=== PATIENT | male | born 1970 | race Caucasian/White ===

== ENCOUNTER 2017-01-04 07:50 | Observation (INO) | payer BC ==
[2017-01-04 07:58] VITALS: BMI 24.7
[2017-01-04] MEDS ORDERED: SODIUM CHLORIDE 1,000 ML IV STA (08:04)
[2017-01-04] MEDS ORDERED: ONDANSETRON 4 MG/2 ML VIAL IVPUSH ONE (08:04)
--- NOTE | 2017-01-04 08:10 | PDOC ---
History of Present Illness - General Chief Complaint: Pain Stated Complaint: VOMITING, ABDOMINAL PAIN Time Seen by Provider: 01/04/17 08:03 History Source: Patient Exam Limitations: No Limitations - History of Present Illness Initial Comments: 01/04/17 08:44 46 year old male with PMH of WPW (s/p ablation) and AV block presenting with acute on subacute diarrhea and abdominal pain. States that this crampy abdominal pain started approximately 2-3 weeks ago and co-presented with some diarrhea. He has noticed some new nausea, vomiting, worsening pain, and more frequent diarrhea (3-4 times daily) over the past 3-4 days with decreased appetite. The pain is described as a 6-8/10 in severity with a crampy quality potentially starting in his left lower quadrant (not entirely sure) now in his infra-umbilical region transversely with relief after defection and exacerbation after eating. He went to urgent care Friday and received a three day course of ciprofloxacin that has not relieved his symptoms. Denies fevers but endorses some occasional chills and headaches. Denies chest pain, palpitations, weakeness, SOB, cough, or other sick symptoms. Denies hematuria or hematochezia/ melena. He does not have a PCP but has a side sawyer Dr. Zambrano. Past History - Past Medical History Allergies/Adverse Reactions: Allergies Allergy/AdvReac Type Severity Reaction Status Date / Time Penicillins AdvReac Intermediate Hives Verified 01/04/17 08:14 Home Medications: Ambulatory Orders NK [No Known Home Medication] 01/04/17 Cardiac Disorders: Yes (wpw,sinoatrium block) Other medical history: WPW s/p ablation, history of AV block - Surgical History Cardiac Surgery: Yes (cardiac ablation) - Psycho/Social/Smoking Cessation Hx Anxiety: No Suicidal Ideation: No Smoking History: Never smoked Have you smoked in the past 12 months: No Information on smoking cessation initiated: No Hx Alcohol Use: No Drug/Substance Use Hx: No Substance Use Type: None Review of Systems - Review of Systems Constitutional: Yes: Loss of Appetite, Weakness. No: Fever, Night Sweats HEENTM: No: Blurred Vision, Recent change in vision Respiratory: No: Cough, Shortness of Breath, Stridor, Wheezing Cardiac (ROS): No: Chest Pain, Irregular Heart Rate, Lightheadedness ABD/GI: Yes: Diarrhea. No: Abdominal Distended, Blood Streaked Bowels, Constipated : No: Hematuria, Incontinence, Urgency Musculoskeletal: No: Back Pain, Joint Pain, Joint Swelling Neurological: Yes: Headache. No: Numbness, Paresthesia *Physical Exam - Vital Signs Last Vital Signs Temp Pulse Resp BP Pulse Ox 98.0 F 59 L 18 156/82 100 01/04/17 07:54 01/04/17 07:54 01/04/17 07:54 01/04/17 07:54 01/04/17 07:54 - Physical Exam General Appearance: Yes: Appropriately Dressed. No: Apparent Distress HEENT: positive: ABEBE, Normal Voice, Pharynx Normal. negative: Pale Conjunctivae, Photophobia, Scleral Icterus (R), Scleral Icterus (L), Pharyngeal Erythema Respiratory/Chest: positive: Lungs Clear, Normal Breath Sounds, Respiratory Distress. negative: Chest Tender Cardiovascular: positive: Regular Rhythm, Regular Rate, S1, S2 Gastrointestinal/Abdominal: positive: Normal Bowel Sounds, Flat, Soft. negative : Tender Musculoskeletal: positive: Normal Inspection. negative: CVA Tenderness (No CVA tenderness but some left sided back sorness) Extremity: positive: Normal Capillary Refill, Normal Inspection Integumentary: positive: Normal Color, Dry, Warm. negative: Cyanotic, Erythema Neurologic: positive: Fully Oriented, Alert ED Treatment Course - LABORATORY CBC & Chemistry Diagram: 01/04/17 08:13 01/04/17 08:13 Medical Decision Making - Critical Care Time Total Critical Care Time (minutes): 30 Critical Care Statement: The care of this patient involved high complexity decision making to prevent further life threatening deterioration of the patient 's condition and/or to evalute & treat vital organ system(s) failure or risk of failure. - Medical Decision Making 01/04/17 09:10 Otherwise healthy 46 year old male presenting with acute on subacute crampy abdominal pain with nausea. He was seen at urgent care during which stool samples were sent and presumed negative for fecal Leuks, however no objective data available. Given the extended chronicity of this pain and symptoms further workup is warranted. Most concerning is potential cholecystitis given chills and abdominal pain, although he was not exquisitely tender on abdominal exam and currently afebrile. Also potentially a renal stone less likely given clear urine and quality of pain. Although the patient denies sick contacts, this could potentially be a viral gastroenteritis, however, again the timeline is peculiar. Work up will include a abd/pelvis CT without con, UA, CBC, and CMP. 01/04/17 09:30 Labs significant for 1+ urine blood with creatinine 1.5, no white count or electrolyte derangement. Will give patient 1 L IV fluids, Zofran. 01/04/17 11:[address] returned positive colitis in ascending colon, cecum and potentially in rectum and sigmoid colon. Additional history from family states that there are family members with similar symptoms. This is most likely a viral gastroenteritis/ colitis although given uncertain timeline, will admit patient for GI evaluation and FLagyl/ Cipro treatment with symptomatic management. *DC/Admit/Observation/Transfer Diagnosis at time of Disposition: Colitis - Discharge Dispostion Admit: Yes Decision to Admit order Date/Time: 01/04/17 10:58 - Attestations Physician Attestion: 01/04/17 11:15 I, Dr. Temitope Mcnamara, attest that this document has been prepared under my direction and personally reviewed by me in its entirety. I further attest, that it accurately reflects all work, treatment, procedures and medical decision -making performed by me.
[2017-01-04 08:27] LABS: BASOPHIL 0.8 % (0-2.0); EOSINOPHIL 1.8 % (0-4.5); MCH 30.7 pg (25.7-33.7); MEAN CELL VOLUME 90.5 fl (80-96); MEAN PLT VOLUME 8.8 fl (7.5-11.1); NEUTROPHILS 68.2 % (42.8-82.8); PLATELET COUNT 192 K/MM3 (134-434); RDW 12.7 % (11.9-15.9); WHITE BLOOD COUNT 6.9 K/mm3 (4.0-10.0)
--- NOTE | 2017-01-04 08:29 | PDOC ---
Attending Attestation - Resident Resident Name: Temitope Mcnamara - ED Attending Attestation I have performed the following: I have examined & evaluated the patient, The case was reviewed & discussed with the resident, I agree w/resident's findings & plan, Exceptions are as noted - HPI HPI: 01/04/17 09:02 46 yo M presenting to the ER with a complaint of diarrhea His symptoms began approximately 3 weeks ago He did have raw clams a few weeks ago Diffuse abdominal pain No blood in stool A few days ago, had undercooked pork Was seen in UC, given cipro 01/04/17 09:05 - Physicial Exam PE: 01/04/17 09:13 RLQ tenderness to palpation No abdominal distention No involuntary guarding No rebound tenderness - Medical Decision Making 01/04/17 09:14 Will do labs will do CT Will hydrate Will re assess CT demonstrates colitis in several locations Will give Levaquin and Flagyl Place on observation Pt attempting to give stool specimen
[2017-01-04 08:30] LABS: URINE APPEARANCE CLEAR; URINE BILIRUBIN NEGATIVE (NEGATIVE); URINE COLOR STRAW; URINE GLUCOSE (UA) NEGATIVE (NEGATIVE); URINE KETONE NEGATIVE (NEGATIVE); URINE LEUK ESTERASE NEGATIVE (NEGATIVE); URINE NITRITE NEGATIVE (NEGATIVE); URINE PROTEIN NEGATIVE (NEGATIVE); URINE UROBILINOGEN NEGATIVE E.U./dl (0.2-1.0)
[2017-01-04] MEDS ORDERED: ONDANSETRON 4 MG/2 ML VIAL ONE (08:33)
[2017-01-04 08:42] LABS: URINE BLOOD 1+ (NEGATIVE)
[2017-01-04 08:52] LABS: ALBUMIN 3.6 g/dl (3.4-5.0); ANION GAP 6 (8-16); CALCIUM 9.2 mg/dL (8.5-10.1); CO2 28 mmol/L (21-32); CREATININE 1.5 mg/dL (0.7-1.3); GLUCOSE,RANDOM 110 mg/dL (74-106); SGOT/AST 22 U/L (15-37); SGPT/ALT 33 U/L (12-78)
[2017-01-04 08:52] LABS: URINE BACTERIA RARE /hpf (NONE SEEN); URINE MUCUS RARE; URINE RBC 2 /hpf (0-3); URINE WBC 3 /hpf (3-5)
[2017-01-04 08:54] LABS: ALK PHOS 64 U/L (45-117); BILIRUBIN,TOTAL 0.3 mg/dL (0.2-1.0); TOT PROT 7.2 g/dl (6.4-8.2)
[2017-01-04] MEDS: SODIUM CHLORIDE 1,000 ML IV STA ×2 (09:28→12:38)
[2017-01-04] MEDS ORDERED: METRONIDAZOLE 500 MG PREMIXED 100 ML IVPB ONE ×2 (11:04→11:07)
[2017-01-04] MEDS ORDERED: LEVOFLOXACIN 750 MG IVPB 150 ML IVPB ONE ×2 (11:04→11:05)
[2017-01-04] MEDS ORDERED: ONDANSETRON 4 MG/2 ML VIAL IVPB PRN (12:36)
--- NOTE | 2017-01-04 13:06 | HP ---
CHIEF COMPLAINT: Diarrhea for a few weeks HISTORY OF PRESENT ILLNESS: This is a 46 year old male with PMHx of Baljeet Parkinson White syndrome (s/p ablation 2000), who presented to the ED with several weeks of intermittent diarrhea. The patient reports that about 2 weeks ago he ate guacamole and the following day experienced severe diarrhea. This diarrhea has been intermittent since then. He denies any bloody diarrhea. He states on Friday night he felt like he was going to "pass out" and had "cold chills" and felt like his body "was on fire". He reports taking Tylenol and went to sleep. On he states he was not feeling better so he went to [facility] ([phone]) where he received IV fluids and had stool cultures sent. He was sent home at that time on Cipro x3 days. On night, the patient reportedly had a fever of 101. He reports only tolerating clear liquids and when he tries to advance his diet he has severe abdominal pain and cramping. The patient denies any nausea or vomiting. He denies any urinary symptoms, chest pain, shortness of breath, headache, dizziness. ER course was notable for: (1) Cr 1.5 (2) CTAP with concentric wall thickening consistent with acute colitis involving the cecum and ascending colon with probable involvement of the rectum and lower third of the sigmoid colon (3) Temp 98, HR 59, BP 156/82, resp 18, O2 100% on RA PAST MEDICAL HISTORY: Baljeet Parkinson White syndrome Social History: Smoking: no Alcohol: Occasionally, red wine 2 times a week about 2 glasses each time Drugs: no Family History: Father, esophageal cancer ( age 45). Brother, [place] in his 40s Allergies Penicillins Adverse Reaction (Intermediate, Verified 01/04/17 08:14) Hives HOME MEDICATIONS: Home Medications Medication Instructions Recorded NK [No Known Home Medication] 01/04/17 REVIEW OF SYSTEMS CONSTITUTIONAL: Fever of 101 on night with associated "cold chills". Absent: fever, diaphoresis, generalized weakness, malaise, loss of appetite, weight change HEENT: Absent: rhinorrhea, nasal congestion, throat pain, throat swelling, difficulty swallowing, mouth swelling, ear pain, eye pain, visual changes CARDIOVASCULAR: Absent: chest pain, syncope, palpitations, irregular heart rate , lightheadedness, peripheral edema RESPIRATORY: Absent: cough, shortness of breath, dyspnea with exertion, orthopnea, wheezing, stridor, hemoptysis GASTROINTESTINAL: Intermittent diarrhea x3 weeks. Absent: abdominal distension, nausea, vomiting, constipation, melena, hematochezia GENITOURINARY: Absent: dysuria, frequency, urgency, hesitancy, hematuria, flank pain, genital pain MUSCULOSKELETAL: Absent: myalgia, arthralgia, joint swelling, back pain, neck pain SKIN: Absent: rash, itching, pallor HEMATOLOGIC/IMMUNOLOGIC: Absent: easy bleeding, easy bruising, lymphadenopathy, frequent infections ENDOCRINE:Absent: unexplained weight gain, unexplained weight loss, heat intolerance, cold intolerance NEUROLOGIC: Absent: headache, focal weakness or paresthesias, dizziness, unsteady gait, seizure, mental status changes, bladder or bowel incontinence PSYCHIATRIC: Absent: anxiety, depression, suicidal or homicidal ideation, hallucinations. PHYSICAL EXAMINATION GENERAL: Awake, alert, and fully oriented, in no acute distress. HEAD: Normal with no signs of trauma. LUNGS: Breath sounds equal, clear to auscultation bilaterally. No wheezes, and no crackles. No accessory muscle use. HEART: Regular rate and rhythm, normal S1 and S2 without murmur, rub or gallop. ABDOMEN: Soft, mild RLQ tenderness, not distended, normoactive bowel sounds, no guarding, no masses. No hepatomegaly or splenomegaly. MUSCULOSKELETAL: Normal range of motion at all joints. No bony deformities or tenderness. LOWER EXTREMITIES: warm, well-perfused. No peripheral edema. NEUROLOGICAL: No focal deficits. Normal speech. Normal gait. PSYCHIATRIC: Cooperative. Good eye contact. Appropriate mood and affect. SKIN: Warm, dry, normal turgor, no rashes or lesions noted, normal capillary refill. CBCD WBC 6.9 K/mm3 (4.0-10.0) 01/04/17 08:13 RBC 4.72 M/mm3 (4.00-5.60) 01/04/17 08:13 Hgb 14.5 GM/dL (11.7-16.9) 01/04/17 08:13 Hct 42.7 % (35.4-49) 01/04/17 08:13 MCV 90.5 fl (80-96) 01/04/17 08:13 MCHC 34.0 g/dl (32.0-35.9) 01/04/17 08:13 RDW 12.7 % (11.9-15.9) 01/04/17 08:13 Plt Count 192 K/MM3 (134-434) 01/04/17 08:13 MPV 8.8 fl (7.5-11.1) 01/04/17 08:13 CMP Sodium 141 mmol/L (136-145) 01/04/17 08:13 Potassium 3.7 mmol/L (3.5-5.1) 01/04/17 08:13 Chloride 107 mmol/L (98-107) 01/04/17 08:13 Carbon Dioxide 28 mmol/L (21-32) 01/04/17 08:13 Anion Gap 6 (8-16) L 01/04/17 08:13 BUN 12 mg/dL (7-18) D 01/04/17 08:13 Creatinine 1.5 mg/dL (0.7-1.3) H D 01/04/17 08:13 Creat Clearance w eGFR 50.84 (>60) 01/04/17 08:13 Random Glucose 110 mg/dL (74-106) H 01/04/17 08:13 Calcium 9.2 mg/dL (8.5-10.1) 01/04/17 08:13 Total Bilirubin 0.3 mg/dL (0.2-1.0) D 01/04/17 08:13 AST 22 U/L (15-37) D 01/04/17 08:13 ALT 33 U/L (12-78) D 01/04/17 08:13 Alkaline Phosphatase 64 U/L (45-117) 01/04/17 08:13 Total Protein 7.2 g/dl (6.4-8.2) 01/04/17 08:13 Albumin 3.6 g/dl (3.4-5.0) 01/04/17 08:13 Assessment: This is a 46 year old male with PMHx of Baljeet Parkinson White syndrome (s/p ablation 2000), who presented to the ED with several weeks of intermittent diarrhea Plan: 1) GI: Acute colitis - Monitor WBC and fever, both WNL today - Patient reportedly took Cipro as prescribed from [facility] since 01/02 - Stool from [facility] (report placed in chart): negative for c.diff and negative for ova and parasite. Stool culture pending - Will continue IV Levaquin - Continue IV flagyl - IV fluids - Trial of clear liquid diet 2) : GIAN - Likely 2/2 dehydration from diarrhea - Continue IV fluids - Monitor Cr, if not improving tomorrow, will send urine electrolytes and bladder/kidney ultrasound 3) F/E/N: - Monitor electrolytes - Clear liquid diet, advance as tolerated 4) Prophylaxis: - OOB ambulating - SCDs bilaterally 5) Dispo: - Once condition improves - The patient gave verbal authorization to speak to his , Genesis regarding diagnosis and plan. Called and spoke to Genesis regarding colitis diagnosis and plan to continue IV abx and fluids. CODE STATUS: FULL CODE Problem List - Problem (1) Colitis Code(s): K52.9 - NONINFECTIVE GASTROENTERITIS AND COLITIS, UNSPECIFIED (2) GIAN (acute kidney injury) Code(s): N17.9 - ACUTE KIDNEY FAILURE, UNSPECIFIED Visit type - Emergency Visit Emergency Visit: Yes ED Registration Date: 01/04/17 Care time: The patient presented to the Emergency Department on the above date and was hospitalized for further evaluation of their emergent condition. - New Patient This patient is new to me today: Yes Date on this admission: 01/04/17 - Critical Care Critical Care patient: No
[2017-01-04] MEDS: SODIUM CHLORIDE 1,000 ML IV SCH ×2 (17:32→19:37)
[2017-01-04] MEDS: METRONIDAZOLE 500 MG PREMIXED 100 ML IVPB SCH (17:32)
[2017-01-04] MEDS: ACETAMINOPHEN 325 MG TABLET (FP) PO PRN (19:37)
[2017-01-05] MEDS: METRONIDAZOLE 500 MG PREMIXED 100 ML IVPB SCH ×3 (01:59→17:17)
[2017-01-05] MEDS: SODIUM CHLORIDE 1,000 ML IV SCH ×2 (05:39→12:55)
[2017-01-05 08:42] LABS: MCH 30.8 pg (25.7-33.7); MCHC 34.7 g/dl (32.0-35.9); MEAN CELL VOLUME 88.9 fl (80-96); MEAN PLT VOLUME 8.8 fl (7.5-11.1); PLATELET COUNT 198 K/MM3 (134-434); RDW 12.5 % (11.9-15.9); WHITE BLOOD COUNT 5.2 K/mm3 (4.0-10.0)
[2017-01-05 09:22] LABS: ANION GAP 6 (8-16); CALCIUM 8.7 mg/dL (8.5-10.1); CO2 31 mmol/L (21-32); CREATININE 1.1 mg/dL (0.7-1.3); GLUCOSE,RANDOM 108 mg/dL (74-106); SGOT/AST 16 U/L (15-37); SGPT/ALT 26 U/L (12-78)
[2017-01-05 09:24] LABS: ALK PHOS 42 U/L (45-117); BILIRUBIN,TOTAL 0.4 mg/dL (0.2-1.0); TOT PROT 5.9 g/dl (6.4-8.2)
[2017-01-05] MEDS ORDERED: LEVOFLOXACIN 500 MG IVPB 100 ML IVPB SCH (10:00)
--- NOTE | 2017-01-05 10:36 | PN ---
Progress Note (short form) - Note Progress Note: Subjective: The patient reports watery diarrhea x2 today. He states his pain in his abdomen has resolved. He is tolerating a clear liquid diet. Will advance to full liquid for lunch Current Medications Generic Name Dose Route Start Last Admin Trade Name Lora PRN Reason Stop Dose Admin Acetaminophen 650 mg 01/04/17 12:36 01/04/17 19:37 Tylenol - PO 650 mg Q6H PRN Administration FEVER OR PAIN Metronidazole 100 mls @ 100 mls/hr 01/04/17 18:00 01/05/17 09:32 Flagyl 500mg Premixed Ivpb - IVPB 100 mls/hr Q8H-IV LAKESHIA Administration Levofloxacin 100 mls @ 100 mls/hr 01/05/17 10:00 01/05/17 10:29 Levaquin 500 Mg Premixed Ivpb - IVPB 100 mls/hr DAILY LAKESHIA Administration Sodium Chloride 1,000 mls @ 75 mls/hr 01/04/17 12:45 01/05/17 05:39 Normal Saline - IV 75 mls/hr ASDIR LAKESHIA Administration Ondansetron HCl 4 mg 01/04/17 12:36 Zofran Injection IVPB Q8H PRN NAUSEA Objective: Vital Signs Period Temp Pulse Resp BP Sys/Hyman Pulse Ox Last 24 Hr 97.3 F-98.9 F 54-62 16-20 120-139/62-77 100-100 Physical Exam: General: NAD, A&Ox3 Abd: Soft, non-tender, non-distended. Normoactive bowel sounds Neuro: No focal deficits CBCD WBC 5.2 K/mm3 (4.0-10.0) 01/05/17 06:38 RBC 4.20 M/mm3 (4.00-5.60) 01/05/17 06:38 Hgb 12.9 GM/dL (11.7-16.9) D 01/05/17 06:38 Hct 37.3 % (35.4-49) 01/05/17 06:38 MCV 88.9 fl (80-96) 01/05/17 06:38 MCHC 34.7 g/dl (32.0-35.9) 01/05/17 06:38 RDW 12.5 % (11.9-15.9) 01/05/17 06:38 Plt Count 198 K/MM3 (134-434) 01/05/17 06:38 MPV 8.8 fl (7.5-11.1) 01/05/17 06:38 CMP Sodium 144 mmol/L (136-145) 01/05/17 06:38 Potassium 4.6 mmol/L (3.5-5.1) D 01/05/17 06:38 Chloride 107 mmol/L (98-107) 01/05/17 06:38 Carbon Dioxide 31 mmol/L (21-32) 01/05/17 06:38 Anion Gap 6 (8-16) L 01/05/17 06:38 BUN 7 mg/dL (7-18) D 01/05/17 06:38 Creatinine 1.1 mg/dL (0.7-1.3) D 01/05/17 06:38 Creat Clearance w eGFR > 60 (>60) 01/05/17 06:38 Random Glucose 108 mg/dL (74-106) H 01/05/17 06:38 Calcium 8.7 mg/dL (8.5-10.1) 01/05/17 06:38 Total Bilirubin 0.4 mg/dL (0.2-1.0) D 01/05/17 06:38 AST 16 U/L (15-37) D 01/05/17 06:38 ALT 26 U/L (12-78) D 01/05/17 06:38 Alkaline Phosphatase 42 U/L (45-117) L D 01/05/17 06:38 Total Protein 5.9 g/dl (6.4-8.2) L 01/05/17 06:38 Albumin 3.0 g/dl (3.4-5.0) L 01/05/17 06:38 Microbiology 01/04/17 08:17 Urine - Urine Clean Catch Urine Culture - Final NO GROWTH OBTAINED 01/04/17 09:04 Blood - Peripheral Venous Blood Culture - Preliminary NO GROWTH OBTAINED AFTER 24 HOURS, INCUBATION TO CONTINUE FOR 4 DAYS. 01/04/17 09:00 Blood - Peripheral Venous Blood Culture - Preliminary NO GROWTH OBTAINED AFTER 24 HOURS, INCUBATION TO CONTINUE FOR 4 DAYS. 01/04/17 09:24 Stool Clostridium difficile Antigen (CATALINO) - Final: Negative 01/04/17 09:24 Stool Clostridium difficile Toxin Assay - Final: Negative Assessment: This is a 46 year old male with PMHx of Baljeet Parkinson White syndrome (s/p ablation 2000), who presented to the ED with several weeks of intermittent diarrhea Plan: 1) GI: Acute colitis - Monitor WBC and fever, both remain wnl - Abd pain improving on Flagyl and Levaquin (Day 2) - IV fluids - Trial of full liquid diet 2) : GIAN - Resolved - Likely 2/2 dehydration from diarrhea - Continue IV fluids 3) F/E/N: - Monitor electrolytes - Full liquid diet, advance as tolerated 4) Prophylaxis: - OOB ambulating - SCDs bilaterally 5) Dispo: - Once condition improves CODE STATUS: FULL CODE Problem List - Problems (1) Colitis Code(s): K52.9 - NONINFECTIVE GASTROENTERITIS AND COLITIS, UNSPECIFIED (2) GIAN (acute kidney injury) Code(s): N17.9 - ACUTE KIDNEY FAILURE, UNSPECIFIED Visit type - Emergency Visit Emergency Visit: Yes ED Registration Date: 01/04/17 Care time: The patient presented to the Emergency Department on the above date and was hospitalized for further evaluation of their emergent condition. - New Patient This patient is new to me today: No - Critical Care Critical Care patient: No
[2017-01-05] MEDS: ACETAMINOPHEN 325 MG TABLET (FP) PO PRN (11:41)
--- NOTE | 2017-01-05 18:03 | DS ---
Physical Examination Vital Signs: Vital Signs Temperature 98.3 F 01/05/17 13:44 Pulse Rate 63 01/05/17 13:44 Respiratory Rate 18 01/05/17 09:18 Blood Pressure 133/77 01/05/17 13:44 O2 Sat by Pulse Oximetry (%) 100 01/05/17 04:00 Labs: CBC, BMP 01/05/17 06:38 01/05/17 06:38 Discharge Summary Reason For Visit: COLITIS Current Active Problems GIAN (acute kidney injury) (Acute) Colitis (Acute) Condition: Improved - Instructions Diet, Activity, Other Instructions: Please return to the ED with new, persistent, or worsening symptoms. Please follow-up with your primary care provider and you GI doctor within 1 week. Continue oral hydration with water or electrolyte drinks such as coconut water or gatorade. If you are unable to keep any fluids down from vomiting, your diarrhea worsens, or you have a fever, return to the ED immediately. Diet: Boiled starches and cereals (eg, potatoes, noodles, rice, wheat, and oat) with salt are indicated in patients with watery diarrhea; crackers, bananas, soup, and boiled vegetables may also be consumed. Foods with high fat content should be avoided until your bowel movements have returned to normal (solid). Referrals: Leo Olvera MD [Staff Physician] - 1 Week Yung Story MD [Staff Physician] - 1 Week Disposition: HOME - Home Medications Comprehensive Discharge Medication List: Ambulatory Orders Acetaminophen [Tylenol .Regular Strength -] 650 mg PO Q6H PRN #0 tablet Levofloxacin [Levaquin -] 500 mg PO DAILY #1 tablet 01/05/17 Metronidazole [Flagyl -] 500 mg PO Q8H #10 tablet 01/05/17
[2017-01-05 18:57] VITALS: BP 114/80; PULSE 67; TEMP 98.8
--- NOTE | 2017-01-06 13:52 | EKG ---
Test Reason : Blood Pressure : / mmHG Vent. Rate : 058 BPM Atrial Rate : 058 BPM P-R Int : 176 ms QRS Dur : 108 ms QT Int : 412 ms P-R-T Axes : 070 046 027 degrees QTc Int : 404 ms SINUS BRADYCARDIA INCOMPLETE RIGHT BUNDLE BRANCH BLOCK BORDERLINE ECG WHEN COMPARED WITH ECG OF 29-DEC-2014 15:45, NO SIGNIFICANT CHANGE WAS FOUND Confirmed by KARI DICKSON MD ([id number]) on 01/06/2017 1:52:17 PM Referred By: Confirmed By:KARI DICKSON MD
== END 2017-01-05 19:44 | disposition home or self-care (01) ==
LOC: JER 07:50 → JERBED 10:58 → INTOOBSV 10:58 → J6S 12:15
PROVIDERS: ADMIT Internal Medicine; ATTEND Registered Nurse
PROC: 3E03329 Introduction of Other Anti-infective into Peripheral Vein, Percutaneous Approach (ICD-10-PCS; principal; 2017-01-04)
PROC: 3E033GC Introduction of Other Therapeutic Substance into Peripheral Vein, Percutaneous Approach (ICD-10-PCS; 2017-01-04)
PROC: 3E0337Z Introduction of Electrolytic and Water Balance Substance into Peripheral Vein, Percutaneous Approach (ICD-10-PCS; 2017-01-04)
DX: K52.9 Noninfective gastroenteritis and colitis, unspecified (principal); N17.9 Acute kidney failure, unspecified; Z98.890 Other specified postprocedural states; Z86.79 Personal history of other diseases of the circulatory system; Z88.0 Allergy status to penicillin
CPT/HCPCS: 36415; 74176-TC; 80053; 81003; 81015; 83605; 85025; 85027; 86850; 86900; 86901; 87040; 87045; 87046; 87086; 87177; 87209; 87324; 87449; 93005; 93010; 99285-25; G0378

== ENCOUNTER 2017-01-15 17:07 | Emergency (ER) | payer BC ==
[2017-01-15 17:16] VITALS: BP 123/85; PULSE 87; TEMP 98.6; BMI 24.3
--- NOTE | 2017-01-15 17:30 | PDOC ---
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 The patient was seen in the ED on 01/04/17 for diarrhea and was found to have colitis and campylobacter. Patient was admitted, where he was given IV levaquin, and discharged on 01/04/17 on a dose of levaquin and a weeks course of flagyl. The patient finished his course of flagyl six days ago. Two days ago the patient began having recurrence of his diarrhea with abdominal cramping. He endorses five episodes of nonbloody diarrhea yesterday. Yesterday the patient received another prescription for levaquin and has had two doses since then. Patient endorses having three normal soft stools today that were nonbloody. He is complaining of feeling week and run down with some chills. Denies fever, vomiting, blood in stool, or urinary complaints. The patient notes having a few beers this weekend after finishing his course of flagyl. Patient is scheduled for an appointment with GI on 01/31/17. Denies history of colonoscopy. Social Hx: Quit tobacco smoking 10 years ago. Occasional ETOH use. Allergies: penicillin <Isabel Shrestha - Last Filed: 01/15/17 18:40> <Adelso Vazquez - Last Filed: 01/15/17 20:41> - General Chief Complaint: Weakness Stated Complaint: WEAKNESS Time Seen by Provider: 01/15/17 17:27 Past History <Isabel Shrestha - Last Filed: 01/15/17 18:40> - Past Medical History Anemia: No Asthma: No Cancer: No Cardiac Disorders: Yes (wpw,sinoatrium block) CVA: No COPD: No CHF: No Dementia: No Diabetes: No GI Disorders: Yes (COLITIS) Disorders: No HTN: No Hypercholesterolemia: No Liver Disease: No Seizures: No Thyroid Disease: No - Surgical History Abdominal Surgery: No Appendectomy: No Cardiac Surgery: Yes (cardiac ablation) Cholecystectomy: No Lung Surgery: No Neurologic Surgery: No Orthopedic Surgery: No - Psycho/Social/Smoking Cessation Hx Anxiety: No Suicidal Ideation: No Smoking History: Former smoker Have you smoked in the past 12 months: No If you are a former smoker, when did you quit?: 11 Information on smoking cessation initiated: No Hx Alcohol Use: Yes (SOCIAL) Drug/Substance Use Hx: No Substance Use Type: None <Adelso Vazquez - Last Filed: 01/15/17 20:41> - Past Medical History Allergies/Adverse Reactions: Allergies Allergy/AdvReac Type Severity Reaction Status Date / Time Penicillins AdvReac Intermediate Hives Verified 01/15/17 17:16 Home Medications: Ambulatory Orders Levofloxacin [Levaquin -] 750 mg PO DAILY 01/15/17 Review of Systems - Review of Systems Comments:: 01/15/17 18:42 CONSTITUTIONAL: Fatigue, chills. No fever EYES: No visual changes ENT: No ear pain, no sore throat CARDIOVASCULAR: No chest pain, no palpitations RESPIRATORY: No cough, no SOB GI: Abdominal cramping, diarrhea. No nausea, no vomiting, no constipation GENITOURINARY: No dysuria, no frequency, no hematuria MUSKULOSKELETAL: No backpain, no joint pain, no myalgias SKIN: No rash NEURO: No headache <Isabel Shrestha - Last Filed: 01/15/17 18:40> *Physical Exam - Vital Signs Last Vital Signs Temp Pulse Resp BP Pulse Ox 98.6 F 87 20 123/85 97 01/15/17 17:13 01/15/17 17:13 01/15/17 17:13 01/15/17 17:13 01/15/17 17:13 - Physical Exam Comments: 01/15/17 18:43 CONSTITUTIONAL: Well-appearing; well-nourished; in no apparent distress HEAD: Normocephalic; atraumatic EYES: PERRL; EOM intact; no scleral icterus ENMT: External appears normal; normal oropharynx; dry mucous membranes NECK: Supple; non-tender; no cervical lymphadenopathy CARD: Normal S1, S2; no murmurs, rubs, or gallops RESP: Normal chest excursion with respiration; breath sounds clear and equal bilaterally; no wheezes, rhonchi, or rales ABD: Soft, non-distended; non-tender; no palpable organomegaly, no palpable hernias EXT: Normal ROM in all four extremities; non-tender to palpation; distal pulses intact SKIN: Warm, dry, no rash NEURO: No focal neurological deficiencies. <Isabel Shrestha - Last Filed: 01/15/17 18:40> - Vital Signs Last Vital Signs Temp Pulse Resp BP Pulse Ox 98.6 F 87 20 123/85 97 01/15/17 17:13 01/15/17 17:13 01/15/17 17:13 01/15/17 17:13 01/15/17 17:13 <Adelso Vazquez - Last Filed: 01/15/17 20:41> ED Treatment Course - LABORATORY CBC & Chemistry Diagram: 01/15/17 17:46 01/15/17 17:59 - ADDITIONAL ORDERS Additional order review: 01/15/17 17:46 RBC 4.57 MCV 89.3 MCHC 33.9 RDW 12.7 MPV 8.4 Neutrophils % 50.1 D Lymphocytes % 33.8 D Monocytes % 14.2 H Eosinophils % 1.1 Basophils % 0.8 <Isabel Shrestha - Last Filed: 01/15/17 18:40> - LABORATORY CBC & Chemistry Diagram: 01/15/17 17:46 01/15/17 17:59 <Adelso Vazquez - Last Filed: 01/15/17 20:41> Medical Decision Making - Medical Decision Making 01/15/17 18:53 Patient is a 46-year-old male who presents to the ER complaining of generalized weakness, malaise and intermittent diarrhea for the past several days after completing a course of metronidazole by mouth for a suspected infectious colitis. Patient had been diagnosed with Campylobacter jejuni by Gram stain at an outside facility and referred to the ER where he was admitted overnight and treated with IV Levaquin for 3 days and metronidazole for a week. Upon completing metronidazole regimen, patient began experiencing recurrent diarrhea and has not been treated with by mouth Levaquin for 2 days. On the day of arrival, patient reports several soft formed bowel movements. In the ER, patient is well-appearing, afebrile, serial abdominal exams reveal no focal tenderness. Mucous membranes are noted to be dry. I will resuscitate patient with IV fluids; we'll obtain CBC/CMP/magnesium level. Will test for C. difficile with antigen and antibody. Will obtain repeat repeat stool culture. Will reassess. 01/15/17 20:38 Patient reassessed. Patient is resting comfortably, tolerates by mouth. Repeat abdominal evaluation reveals no focal tenderness. CBC/CMP/UA within normal limit. Patient advised to complete a course of Levaquin (7 days). Patient advised to follow-up with ID and GI for further evaluation and treatment. Patient advised to return immediately for fever, abdominal pain, bloody diarrhea. <Adelso Vazquez - Last Filed: 01/15/17 20:41> *DC/Admit/Observation/Transfer - Attestations Scribe Attestion: 01/15/17 18:44 Documentation prepared by Isabel Shrestha, acting as medical underwriter for Adelso Vazquez MD. <Isabel Shrestha - Last Filed: 01/15/17 18:40> - Attestations Physician Attestion: 01/15/17 18:53 The documentation was prepared by the scribe under my direct supervision. I have reviewed the documentation which correctly represents the findings, medical decision-making and critical action taken by me. <Adelso Vazquez - Last Filed: 01/15/17 20:41> Diagnosis at time of Disposition: Colitis, Enteritis due to Campylobacter species - Discharge Dispostion Disposition: HOME Condition at time of disposition: Stable - Referrals Referrals: Bruna Welsh MD [Staff Physician] - Yung Story MD [Staff Physician] - - Patient Instructions Printed Discharge Instructions: DI for Colitis Additional Instructions: Completed a course of Levaquin (7 days). Return immediately for fever, severe abdominal pain, bloody diarrhea.
[2017-01-15] MEDS ORDERED: SODIUM CHLORIDE 1,000 ML IV STA (17:47)
[2017-01-15 18:32] LABS: URINE APPEARANCE CLEAR; URINE BILIRUBIN NEGATIVE (NEGATIVE); URINE BLOOD 1+ (NEGATIVE); URINE COLOR COLORLESS; URINE GLUCOSE (UA) NEGATIVE (NEGATIVE); URINE KETONE NEGATIVE (NEGATIVE); URINE LEUK ESTERASE NEGATIVE (NEGATIVE); URINE NITRITE NEGATIVE (NEGATIVE); URINE PROTEIN NEGATIVE (NEGATIVE); URINE UROBILINOGEN NEGATIVE mg/dL (0.2-1.0)
[2017-01-15 18:32] LABS: BASOPHIL 0.8 % (0-2.0); EOSINOPHIL 1.1 % (0-4.5); MCH 30.2 pg (25.7-33.7); MCHC 33.9 g/dl (32.0-35.9); MEAN CELL VOLUME 89.3 fl (80-96); MEAN PLT VOLUME 8.4 fl (7.5-11.1); NEUTROPHILS 50.1 % (42.8-82.8); PLATELET COUNT 246 K/MM3 (134-434); RDW 12.7 % (11.9-15.9); WHITE BLOOD COUNT 6.6 K/mm3 (4.0-10.0)
[2017-01-15 18:41] LABS: INR 1.25 (0.82-1.09); PROTHROMBIN TIME (PATIENT) 13.8 SEC (9.98-11.88)
[2017-01-15] MEDS ORDERED: ACETAMINOPHEN 500 MG TABLET (FP) PO ONE (18:59)
[2017-01-15] MEDS ORDERED: ACETAMINOPHEN 325 MG TABLET (FP) ONE (19:02)
[2017-01-15 19:17] LABS: ALBUMIN 3.6 g/dl (3.4-5.0); ANION GAP 6 (8-16); CALCIUM 9.1 mg/dL (8.5-10.1); CO2 29 mmol/L (21-32); GLUCOSE,RANDOM 80 mg/dL (74-106); MAGNESIUM 2.2 mg/dL (1.8-2.4); SGOT/AST 24 U/L (15-37); SGPT/ALT 84 U/L (12-78)
[2017-01-15 19:20] LABS: ALK PHOS 59 U/L (45-117); BILIRUBIN,TOTAL 0.5 mg/dL (0.2-1.0)
[2017-01-15 20:20] LABS: URINE MUCUS RARE; URINE RBC 1 /hpf (0-3); URINE WBC <1 /hpf (3-5)
== END 2017-01-15 21:18 | disposition home or self-care (01) ==
LOC: JER 17:07
PROC: 3E0337Z Introduction of Electrolytic and Water Balance Substance into Peripheral Vein, Percutaneous Approach (ICD-10-PCS; principal; 2017-01-15)
DX: A04.6 Enteritis due to Yersinia enterocolitica (principal); K52.9 Noninfective gastroenteritis and colitis, unspecified; Z87.891 Personal history of nicotine dependence
CPT/HCPCS: 36415; 80053; 81003; 81015; 83735; 85025; 85610; 99282-25

== ENCOUNTER 2017-04-18 08:55 | Day surgery (SDC) | payer BC ==
[2017-04-18 09:21] VITALS: BMI 23.9
[2017-04-18] MEDS ORDERED: PROPOFOL 20 ML ONE ×3 (09:23)
[2017-04-18 10:26] VITALS: TEMP 97.5
[2017-04-18 12:02] VITALS: BP 112/60; PULSE 64
--- NOTE | 2017-04-21 15:40 | PATH ---
Surgical Pathology Report Patient Name: MAGGIE TOBIAS [facility]. Rec. #: [id number] /Age/Gender: 1970 (Age: 47) / M Account: [id number] Location: U-ENDOSCOPY Taken: 04/18/2017 Received: 04/18/2017 Reported: 04/21/2017 Physicians: Radha Pabon M.D. Specimen(s) Received A: BX ILEUM B: BX CECUM C: BX SIGMOID Clinical History Abdominal pain, weight loss, diarrhea Spastic colon Final Diagnosis A. ILEUM, BIOPSY: SMALL BOWEL/ ILEAL MUCOSA WITHOUT SIGNIFICANT PATHOLOGIC FINDINGS. NO EVIDENCE OF MICROSCOPIC COLITIS. B. CECUM, BIOPSY: COLONIC MUCOSA WITH FOCAL SURFACE HYPERPLASTIC FEATURES. NO EVIDENCE OF MICROSCOPIC COLITIS. C. SIGMOID, BIOPSY: COLONIC MUCOSA WITH FOCAL SURFACE HYPERPLASTIC FEATURES. Electronically Signed Yari Calvillo M.D. Gross Description A. Received in formalin, labeled "biopsy ileum" are 2 flores, irregular portions of soft tissue measuring 0.4 and 0.5 cm. in greatest dimension. The specimens are submitted in toto in one cassette. B. Received in formalin, labeled "biopsy cecum" are 2 flores, irregular portions of soft tissue averaging 0.4 cm. in greatest dimension. The specimens are submitted in toto in one cassette. C. Received in formalin, labeled "biopsy sigmoid" are 2 flores, irregular portions of soft tissue averaging 0.3 cm. in greatest dimension. The specimens are submitted in toto in one cassette. 04/18/2017 saudi04/18/2017
== END 2017-04-18 11:55 | disposition home or self-care (01) ==
LOC: JASU-ENDO 08:55
PROVIDERS: ATTEND Internal Medicine Gastroenterology
PROC: 0DBN8ZX Excision of Sigmoid Colon, Via Natural or Artificial Opening Endoscopic, Diagnostic (ICD-10-PCS; 2017-04-18)
PROC: 0DBB8ZX Excision of Ileum, Via Natural or Artificial Opening Endoscopic, Diagnostic (ICD-10-PCS; 2017-04-18)
PROC: 0DBH8ZX Excision of Cecum, Via Natural or Artificial Opening Endoscopic, Diagnostic (ICD-10-PCS; principal; 2017-04-18 10:00)
DX: K58.9 Irritable bowel syndrome, unspecified (principal); K64.8 Other hemorrhoids
CPT/HCPCS: 87045; 87046; 87186; 88305-TC

== ENCOUNTER 2022-05-08 17:40 | Emergency (ER) | payer BC ==
[2022-05-08 17:58] VITALS: BP 159/93; PULSE 65; RESP 18; TEMP 98.9; BMI 29.5
[2022-05-08] MEDS ORDERED: ACETAMINOPHEN 325 MG TABLET (FP) PO ONE (18:00)
[2022-05-08] MEDS ORDERED: ACETAMINOPHEN 325 MG TABLET (FP) ONE (18:02)
[2022-05-08] MEDS ORDERED: ONDANSETRON *ODT* 4 MG TABLET SL ONE (18:07)
[2022-05-08] MEDS ORDERED: PSEUDOEPHEDRINE HCL 60 MG TABLET PO ONE (18:08)
[2022-05-08] MEDS ORDERED: ONDANSETRON *ODT* 4 MG TABLET ONE (18:11)
== END 2022-05-08 18:30 | disposition home or self-care (01) ==
LOC: FER 17:40
DX: R05.1 Acute cough (principal); R09.81 Nasal congestion; R11.0 Nausea
CPT/HCPCS: 0241U-QW; 99283-25; Q0162

== ENCOUNTER 2025-04-07 06:28 | Day surgery (SDC) | payer BC ==
[2025-04-06 09:10] VITALS: BMI 25.4
[2025-04-07 08:41] VITALS: RESP 14; TEMP 97.6
[2025-04-07] MEDS ORDERED: ACETAMINOPHEN 500 MG TABLET (FP) PO PRN (09:06)
[2025-04-07] MEDS ORDERED: TRIAMCINOLONE ACET 40MG/1ML VIAL ONE (09:41)
[2025-04-07] MEDS: LIDOCAINE 1% P/F 10 MG/ML VIAL INF ONE (09:56)
[2025-04-07] MEDS: IOHEXOL 180 MG/1 ML ML IJ ONE (09:59)
[2025-04-07] MEDS: BUPIVACAINE HCL/PF 0.5% (5 MG/ML) 30 ML VIAL IJ ONE (10:00)
[2025-04-07] MEDS: TRIAMCINOLONE ACET 40MG/1ML VIAL IJ ONE (10:00)
[2025-04-07 10:03] VITALS: BP 164/77; PULSE 72
== END 2025-04-07 10:17 | disposition home or self-care (01) ==
LOC: JASU-SURG 06:28
PROVIDERS: ATTEND Pain Medicine Pain Medicine
PROC: 3E0U3BZ Introduction of Anesthetic Agent into Joints, Percutaneous Approach (ICD-10-PCS; 2025-04-07)
PROC: 3E0U33Z Introduction of Anti-inflammatory into Joints, Percutaneous Approach (ICD-10-PCS; principal; 2025-04-07 09:30)
DX: M16.12 Unilateral primary osteoarthritis, left hip (principal)
CPT/HCPCS: 76000-TC-FY